=== PATIENT | female | born 1995 | race African-American/Black ===

== ENCOUNTER 2020-04-21 00:39 | Inpatient (IN) ==
[2020-04-21] MEDS ORDERED: LACTATED RINGERS 1,000 ML IV ONE (01:18)
[2020-04-21] MEDS ORDERED: ACETAMINOPHEN 500 MG TABLET PO ONE (01:19)
[2020-04-21 01:25] LABS: Bacteria,Urine Many /HPF (Few); Bilirubin,Urine Negative (Negative); Blood, Urine Small mg/dL (Negative); Glucose,Urine (UA) Negative (Negative); Ketones,Urine Negative (Negative); Mucus,Urine Occasional /LPF (Occasional); Nitrite,Urine Negative (Negative); Protein,Urine 100 MG/DL; RBC,Urine 35 /HPF (0-4); Squamous Epithelial Cell,Urine Occasional /HPF (0-10); Urine Appearance CLOUDY (Clear); Urine Color Yellow (Yellow); Urine Specific Gravity 1.006 (1.001-1.035); Urine Urobilinogen < 2.0 EU/DL (0.2-1.0); WBC,Urine 612 /HPF (0-6)
[2020-04-21] MEDS ORDERED: SODIUM CHLORIDE 0.9% 100 ML IV ONE ×2 (01:56→13:31)
[2020-04-21] MEDS: ACETAMINOPHEN 500 MG TABLET PO PRN ×4 (02:00→22:25)
[2020-04-21 02:19] LABS: Basophils % 0.1 % (0.0-0.8); Hemoglobin 8.1 GM/DL (12.0-16.0); Immature Granulocytes % 2.2 %; Immature Granulocytes Absolute 0.44 #; Lymphocytes # 1.2 10*3/uL (1.4-4.0); Lymphocytes % 6.1 % (21.3-54.2); Mean Corpuscular HGB Conc 31.2 GM/DL (32-36); Mean Corpuscular Volume 71.4 FL (87-102); Mean Platelet Volume 9.9 FL (9.6-12.0); Monocytes % 12.1 % (1.7-12.7); NRBC # 0.08 10*3/uL; Neutrophils % 79.5 % (38.7-73.9); Platelet Count 236 T/CUMM (130-400); Red Blood Count 3.64 MC/CUMM (3.8-5.5); White Blood Count 20.4 T/CUMM (4-12)
[2020-04-21 02:42] LABS: Alanine Aminotransferase < 9 U/L (13-56); Albumin 2.1 G/DL (3.4-5.0); Alkaline Phosphatase 83 U/L (45-117); Aspartate Amino Transferase 14 U/L (0-37); Blood Urea Nitrogen 4 MG/DL (7-18); Calcium 8.2 MG/DL (8.5-10.1); Estimated Glom Filtration Rate 132 ML/MIN; Glucose 94 MG/DL (74-106); Osmolality,Calculated 266.1 MOS/KG (273-304); Total Protein 6.8 G/DL (6.4-8.3)
[2020-04-21] MEDS: cefTRIAXone 1,000 MG in SYRINGE 1 EACH IV SCH ×2 (02:51→13:33)
[2020-04-21 02:55] LABS: Band Neutrophils 1 % (0-10); Lymphocytes 5 % (20-55); Nucleated Red Blood Cells 1 (0-5); Segmented Neutrophils 83 % (50-85); Total Cells Counted 100
[2020-04-21 02:56] LABS: Platelet Estimate Normal
[2020-04-21 02:57] LABS: Hypochromasia 1+; Microcytosis 1+; Polychromasia Few
[2020-04-21] MEDS: LACTATED RINGERS 1,000 ML IV SCH ×3 (06:39→22:27)
[2020-04-21 14:29] LABS: Bacteria Wet Mount Few /HPF; Clue Cells None Seen /HPF (None Seen); Epithelial Cell Wet Mount Moderate /HPF (Few/HPF); RBC Wet Mount Rare /HPF; Trichomonas Wet Mount Moderate /HPF (None Seen); WBC Wet Mount Few /HPF; Yeast Wet Mount Few /HPF (None Seen)
[2020-04-21] MEDS ORDERED: ONDANSETRON 4 MG/2 ML VIAL IV PRN (16:20)
[2020-04-21] MEDS: metroNIDAZOLE INJ 500 MG in PREMIX 1 EACH IV SCH (18:32)
[2020-04-22] MEDS ORDERED: ACETAMINOPHEN 500 MG TABLET PO PRN (01:00)
[2020-04-22] MEDS: cefTRIAXone 1,000 MG in SYRINGE 1 EACH IV SCH (02:03)
[2020-04-22] MEDS: metroNIDAZOLE INJ 500 MG in PREMIX 1 EACH IV SCH (06:19)
[2020-04-22 06:51] LABS: Basophils # 0.1 10*3/uL (0.0-0.2); Basophils % 0.3 % (0.0-0.8); Eosinophils % 0.2 % (0.00-10.9); Hematocrit 27.3 VOL% (35.7-47.0); Hemoglobin 8.6 GM/DL (12.0-16.0); Immature Granulocytes Absolute 0.33 #; Lymphocytes # 1.1 10*3/uL (1.4-4.0); Lymphocytes % 6.4 % (21.3-54.2); Mean Corpuscular HGB Conc 31.5 GM/DL (32-36); Mean Corpuscular Volume 71.1 FL (87-102); Mean Platelet Volume 9.7 FL (9.6-12.0); Monocytes % 7.6 % (1.7-12.7); NRBC # 0.09 10*3/uL; Neutrophils % 83.5 % (38.7-73.9); Platelet Count 247 T/CUMM (130-400); Red Blood Count 3.84 MC/CUMM (3.8-5.5); Red Cell Distribution Width 16.8 % (9.3-17.3); White Blood Count 16.8 T/CUMM (4-12)
[2020-04-22] MEDS: LACTATED RINGERS 1,000 ML IV SCH (10:17)
[2020-04-22 11:58] VITALS: BP 101/58
== END 2020-04-22 14:05 | disposition home or self-care (01) | DRG 566 ==
LOC: N.LDOUT 00:39 → N.LD 00:44 → N.OB 17:24
PROVIDERS: ADMIT Obstetrics & Gynecology; ATTEND Obstetrics & Gynecology